=== PATIENT | male | born 1975 | race Caucasian/White ===

== ENCOUNTER 2021-11-11 13:49 | Emergency (ER) | payer MEDICAID, SELFPAY ==
[2021-11-11 13:58] VITALS: BP 167/93; PULSE 97; RESP 16; TEMP 37.1; O2SAT 97; BMI 21.6
[2021-11-11] MEDS: methylPREDNISolone Sod Succ 125 MG/2 ML VIAL IVPUSH (14:23)
[2021-11-11] MEDS: Famotidine/PF 20 MG/2 ML VIAL IVPUSH (14:23)
--- NOTE | 2021-11-11 15:26 | ED.ALLEREA ---
HPI - Allergic Reaction General Chief complaint: Allergic Reaction Stated complaint: allergic reaction, bee sting. Time Seen by Provider: 11/11/21 14:09 Source: patient Mode of arrival: ambulatory History of Present Illness HPI narrative: 46-year-old male with no significant past medical history presenting to the ED complaining of allergic reaction to bee sting to back of right ankle PHYS THERAPIST. Patient with known allergy to bee stings, reports this was a yellow jacket. Has an EpiPen at home however is , did not use, however did take liquid Benadryl PHYS THERAPIST. Reports localized erythema/swelling and itching. Denies cough, throat swelling, throat closing sensation, SOB, wheezing. MD complaint: allergic reaction Related Data Previous Rx's Medication Instructions Recorded epinephrine 0.3 mg/0.3 mL 0.3 mg (0.3 mL) IM Q4H PRN 11/11/21 injection, auto-injector (EpiPen) anaphylaxis #2 ea prednisone 20 mg tablet 40 mg PO DAILY 5 days #10 tabs 11/11/21 Allergies Allergy/AdvReac Type Severity Reaction Status Date / Time bee pollen [BEE STINGS] Allergy Severe ANAPHYLAXIS Unverified 01/29/20 15:17 Review of Systems Review of Systems: Constitutional: No Fever, No Chills, No Fatigue, No Malaise ENT/Mouth: No Ear Pain, No Nasal Congestion, No Sinus Pain, No Hoarseness, No sore throat, No Rhinorrhea, No Swallowing Difficulty Eyes: No Eye Pain, No Swelling, No Redness, No Vision Changes Cardiovascular: No Chest Pain, No SOB, No Dyspnea on Exertion, No Orthopnea, No Edema, No Palpitations Respiratory: No Cough, No Sputum, No Dyspnea Gastrointestinal: No Nausea, No Vomiting, No Diarrhea, No Constipation, No Abdominal pain Genitourinary: No Dysuria, No Urinary Frequency, No Hematuria, No Flank Pain Musculoskeletal: No joint pain, No Myalgias, No Joint Swelling Skin: + Skin Lesions, No rash Neuro: No Weakness, No Numbness, No Headache Yes all other systems are reviewed and are negative [facility] Past Medical History Attestation statement: The following information was validated with the patient. Social History Social History Advance Directives: No Advance Directives Information Provided: No Physical Exam ED Vital Signs: Vital Signs - 24 hr 11/11/21 13:58 Temperature 98.8 F Pulse Rate 97 Respiratory Rate 16 Blood Pressure 167/93 H Pulse Oximetry 97 Oxygen Delivery Method Room Air BMI result Body Mass Index 21.6 Const General: cooperative, healthy appearing and no acute distress Orientation/consciousness: patient oriented x3 Limitations: no limitations HENMT Head: Yes normal to inspection and Yes atraumatic Ears: hearing grossly normal bilaterally General nose exam: Normal external nose present Face and sinus: Yes normal facial exam Mouth: Normal oral and palatal mucosa present, tongue normal, oropharynx normal and no drooling Throat: Yes posterior oropharynx normal, Yes tonsils normal, Yes uvula midline, No peritonsillar mass and No posterior oropharynx abnormal Eyes General: appearance normal, both eyes and all related structures EOM: EOMs intact bilaterally Neck Neck: Yes normal visual inspection, Yes no lymphadenopathy, Yes no meningeal signs and No anterior neck swelling Resp Effort & Inspection: normal respiratory effort, no grunting, not labored and no respiratory distress Auscultation: clear to auscultation bilaterally, no crackles, no rales, no rhonchi and no wheezes Cardio Rate: regular rate Heart sounds: S1 normal heart sound present and S2 normal heart sound present GI Inspection: Yes normal to inspection General: Yes no CVA tenderness Back/Spine/Pelvis Back: no CVA tenderness Skin Other: + bee sting noted to right ankle with surrounding erythema/swelling. No streaking, no other appreciable rash/hives Wounds: no wounds Neuro General: patient oriented x3, tone normal and no meningeal signs Gait exam (Neuro): Normal gait present Extrem General: Yes normal to inspection Course Course Course Narrative: -patient without progression of symptoms, reports symptomatic improvement. Talking in complete sentences. Will discharge with short course of prednisone and refill for epipen MDM - Allergic Reaction MDM Narrative Medical decision making narrative: 46-year-old male with no significant past medical history presenting to the ED complaining of allergic reaction to bee sting to back of right ankle PHYS THERAPIST. On exam vital signs stable, NAD/nontoxic-appearing, bee sting noted to right ankle with localized swelling/erythema. Talking in complete sentences, no respiratory distress, no urticaria. Plan: IV Solu-Medrol and Pepcid as patient already took Benadryl, observe Differential Diagnosis Differential diagnosis: Likely anaphylaxis, allergic reaction, contact dermatitis and urticaria Medical Records Attestation: I reviewed the patient's medical records. Lab Data Attestation: I reviewed the patient's lab results. Discharge Plan Discharge Clinical Impression: Allergic reaction Patient Disposition: Home, Self-Care Instructions: General Allergic Reaction (ED) Additional Instructions: Continue taking Benadryl at home as needed. In addition prednisone as a steroid which will help with swelling/allergic reaction symptoms. Only use EpiPen if you developed anaphylactic symptoms. If you use her EpiPen return to the emergency department immediately. If symptoms persist or worsen, he develops shortness breath, cough, oral swelling return to the ED Prescriptions: New prednisone 20 mg tablet 40 mg PO DAILY 5 Days Qty: 10 0RF epinephrine [EpiPen] 0.3 mg/0.3 mL auto-injector 0.3 mg IM Q4H PRN (Reason: anaphylaxis) Qty: 2 0RF Referrals: Physician,Unknown J [Primary Care Provider] - Interventions: ED Discharge Assessment Last Done: 11/11/21 15:41
== END 2021-11-11 15:42 | disposition home or self-care (01) ==
PROVIDERS: Emergency Provider Emergency Medicine Emergency Medical Services
DX: T63.441A Toxic effect of venom of bees, accidental (unintentional), initial encounter (principal); Y92.9 Unspecified place or not applicable; X58.XXXA Exposure to other specified factors, initial encounter; Z79.899 Other long term (current) drug therapy
CPT/HCPCS: 96374; 96375; 99283; 99284; J2930

== ENCOUNTER 2023-12-01 12:06 | Emergency (ER) | payer MEDICAID, SELFPAY ==
[2023-12-01 12:08] VITALS: BP 197/108; PULSE 96; RESP 18; TEMP 36.8; O2SAT 96; BMI 23.2
[2023-12-01 12:20] VITALS: BP 214/130; PULSE 97; RESP 18; O2SAT 97
--- NOTE | 2023-12-01 12:24 | PC.NURSE ---
Reports he was stung by wasp approx 30 mins ago while working outside, has hx of anaphylaxis to bee stings has epi pen but did not use today. Reports S/S of chest tightness with breathing, itching to trunk and anxiety. Reports he normally has delayed reaction to stings. Alert and oriented, breathing even and unlabored, small area of rash noted to abdomen. BP significantly hypertensive.
--- NOTE | 2023-12-01 12:30 | ED_ITS ---
HPI - Allergic Reaction General Chief complaint: Allergic Reaction Stated complaint: Allergic Reaction to Bee Sting Time Seen by Provider: 12/01/23 12:24 Source: patient Mode of arrival: ambulatory Limitations: no limitations History of Present Illness ED Provider: Kat Gay PA-C HPI narrative: 48 yo male with history of allergy to bee stings presents the ER for evaluation after he was stung on the right outer upper arm 1 hour ago by a hornet. States he carries an EpiPen but has never required it. He took 1 dose of Children's liquid Benadryl prior to coming in. He reports a history of delayed allergic reaction with significant swelling in the area that was stung 1-2 days after the initial sting. He states usually requires prednisone for this. He denies any facial swelling, lip swelling, tongue swelling, difficulty breathing, wheezing, shortness of breath. No chest pain. No abdominal pain, nausea, vomiting. Patient arrives to the ER found to be profoundly hypertensive with a blood pressure of 197/1 awake. He states he has a history of ?stage I hypertension but he is not on any blood pressure medications. He no longer trend his blood pressure and has not taken in several years. He states his blood pressure is high today because he is anxious and nervous about being here. He did not use his EpiPen today MD complaint: allergic reaction Onset (ago): hour(s) Exposure: insect bite Symptoms: rash Severity: mild Treatment prior to arrival: benadryl Previous Allergic Reaction History: prior ED visit(s) Related Data Previous Rx's ?Medication ?Instructions ?Recorded epinephrine 0.3 mg/0.3 mL 0.3 mg (0.3 mL) IM Q4H PRN 11/11/21 injection, auto-injector (EpiPen) anaphylaxis #2 ea prednisone 20 mg tablet 40 mg (2 x 20 mg) PO DAILY 5 days 11/11/21 #10 tabs amlodipine 10 mg tablet 10 mg PO DAILY #30 tabs 12/01/23 prednisone 20 mg tablet 40 mg (2 x 20 mg) PO DAILY #6 tabs 12/01/23 Allergies Allergy/AdvReac Type Severity Reaction Status Date / Time bee pollen [BEE STINGS] Allergy Severe ANAPHYLAXIS Verified 12/01/23 12:10 Review of Systems 2 Review of Systems: Yes all other systems are reviewed and are negative [facility] Social History Social History Smoked in Last 30 Days: Yes Use of substances other than those prescribed or required for medical reasons: No Advance Directives: No Advance Directives Information Provided: No Physical Exam ED Vital Signs: Vital Signs - 24 hr 12/01/23 12:08 12/01/23 12:20 12/01/23 12:53 Temperature 98.3 F Pulse Rate 96 97 Respiratory Rate 18 18 Blood Pressure 197/108 H 214/130 H 221/107 H Pulse Oximetry 96 97 Oxygen Delivery Method Room Air Room Air 12/01/23 15:01 12/01/23 15:37 12/01/23 16:11 Temperature 98.3 F Pulse Rate 92 92 Respiratory Rate 18 18 Blood Pressure 201/127 H 199/111 H 199/111 H Pulse Oximetry 98 98 Oxygen Delivery Method Room Air Room Air BMI result Body Mass Index 23.2 Appearance: Alert. Oriented X3. No acute distress. Head: normocephalic, atraumatic. Eyes: Pupils equal, round and reactive to light. ENT: Pharynx normal. No tonsillar swelling or exudate. Poor dentition. No lip or tongue swelling. Normal voice, handling secretions normally. Neck: Normal inspection. Neck supple. CVS: Normal heart rate and rhythm. Pulses normal. Respiratory: No respiratory distress. Breath sounds normal. Abdomen: Soft and nontender. +BS x4 Skin: Skin warm and dry. Normal skin color. Normal skin turgor. No rashes. Extremities: No lower extremity edema. No joint swelling. Right lateral upper arm with a approximately 6 cm area of erythema warmth, nontender, no fluctuance, mild induration noted. Full range of motion of the right upper extremity. Neurovascularly intact distally. Neuro/psych: Oriented X 3. No motor deficit. No sensory deficit. CN II-XII intact. Normal speech and cognition. Medications Administered Discontinued Medications Generic Name Dose Route Start Last Admin Trade Name Freq PRN Reason Stop Dose Admin Amlodipine Besylate 10 mg 12/01/23 12:34 12/01/23 12:53 Amlodipine Besylate 10 Mg Tablet PO 12/01/23 12:35 10 mg ONCE ONE Administration Protocol Diphenhydramine HCl 25 mg 12/01/23 12:34 12/01/23 12:52 Diphenhydramine Hcl 25 Mg Capsule PO 12/01/23 12:35 25 mg ONCE ONE Administration Lisinopril 20 mg 12/01/23 15:19 12/01/23 15:37 Lisinopril 20 Mg Tablet PO 12/01/23 15:20 20 mg ONCE ONE Administration Protocol Prednisone 50 mg 12/01/23 12:34 12/01/23 12:52 Prednisone 10 Mg Tablet PO 12/01/23 12:35 50 mg ONCE ONE Administration Medical Decision Making Medical Decision Making [facility] Narrative: 48-year-old male with reported history of stage I hypertension, not currently on medications with no primary care who presents to the ER for evaluation of a bee sting an hour ago. No evidence of anaphylaxis at this time. Airway is patent, speaking complete sentences. No respiratory distress. He has localized swelling, erythema of the right biceps. On arrival to the ER patient is significantly hypertensive. Blood pressure taken multiple times and results were similar with systolics in the 200s. He does not have any symptoms, no chest pain, vision changes, headache. Does not take his blood pressure at home. Does not have a primary care doctor. He states it is due to anxiety. After multiple repeat blood pressures were the same, p.o. amlodipine was ordered along with p.o. Benadryl and prednisone for his allergic reaction. He was monitored closely. No evidence of evolution of allergic reaction symptoms worsening. Blood pressure remained elevated. P.o. lisinopril was then ordered, as he refused IV medications. He thinks blood pressure medications or dangerous. He does not want to be on 1. Patient was counseled on the significant health risks of severely untreated hypertension including spontaneous intracranial hemorrhage, damage to multiple organ systems including heart, kidneys. He expressed understanding. I recommended admission to the hospital for initiation and titration of antihypertensive agents however he adamantly declined. States he would like to go home, purchase a home BP cuff. He signed out against medical advice in all the risks were discussed including . Differential Diagnosis Differential Diagnoses: The differential diagnosis associated with the presentation includes Localized allergic reaction, anaphylaxis, malignant hypertension, hypertensive crisis, hypertensive urgency, hypertensive emergency Admission/Observation Consideration of admission/observation: Escalation of care including admission/observation considered Lab Data [facility] Lab Attestation statement: I reviewed the patient's lab results. 12/01/23 13:35 12/01/23 13:35 Labs: Lab Results 12/01/23 Range/Units 13:35 WBC 7.9 (4.8-10.8) X10*3/uL RBC 4.71 (4.60-5.80) X10*6/uL Hgb 15.0 (14.0-18.0) g/dl Hct 42.0 (42.0-52.0) % MCV 89.2 (80.0-98.0) fL MCH 31.8 (27.0-33.0) pg MCHC 35.7 (31.0-36.0) g/dl RDW 11.7 (11.0-16.0) % Plt Count 219 (160-400) X10*3/uL MPV 9.4 (9.4-12.4) fL Immature Gran % (Auto) 0.3 (0.0-0.4) % Neut % (Auto) 62.5 (45-73) % Lymph % (Auto) 26.9 (20-40) % Cotton % (Auto) 8.3 (2-11) % Eos % (Auto) 1.4 (0-4) % Baso % (Auto) 0.6 (0-2) % Lymph # (Auto) 2.1 (1.2-4.9) X10*3/uL Cotton # (Auto) 0.7 (0.1-1.2) X10*3/uL Eos # (Auto) 0.1 (0.0-0.4) X10*3/uL Baso # (Auto) 0.1 (0.0-0.2) X10*3/uL Abs Immat Gran (auto) 0.02 (0.00-0.03) X10*3/uL Absolute Neuts (auto) 4.9 (2.0-8.3) x10*3/uL Absolute Nucleated RBC 0.000 (0.0-0.012) X10*3/uL Nucleated RBC % (auto) 0.0 (0.0-0.2) /100WBC Sodium 141 (135-145) mmol/L Potassium 4.2 (3.3-5.1) mmol/L Chloride 104 (96-108) mmol/L Carbon Dioxide 26 (22-29) mmol/L Anion Gap 15 (12-20) BUN 15 (9-16) mg/dL Creatinine 1.16 (0.5-1.4) mg/dL Estim Creat Clear Calc 84.7 Estimated GFR > 60 Random Glucose 101 (60-115) mg/dL Calcium 9.9 (8.4-10.2) mg/dL Magnesium 2.4 (1.6-2.6) mg/dL Total Bilirubin 0.5 (0.0-1.0) mg/dL Direct Bilirubin 0.1 (0.0-0.5) mg/dL AST 14 (5-37) U/L ALT 10 (0-40) U/L Alkaline Phosphatase 56 (39-117) U/L Total Protein 7.6 (6.5-8.0) g/dL Albumin 4.6 (3.5-5.0) g/dL Prescription Management I considered prescription management with: Other (Prednisone and Benadryl, antihypertensive) Chronic Conditions Patient?s care impacted by: Hypertension Critical Care Time Critical Care Time Critical Care Time: Yes Total Critical Care Time: 32 Attestation: I have personally provided critical care time exclusive of time spent on separately billable procedures. Time includes review of lab data, bedside re- evaluation of vital signs, respiratory status, airway, and monitoring for potential decompensation. Intervention performed as documented. Discharge Plan Discharge Clinical Impression: Allergic reaction, Hypertension Patient Disposition: Left Against Medical Advice Instructions: Hypertensive Crisis (ED), General Allergic Reaction (ED) Additional Instructions: Her blood pressure today was severely elevated. It was recommended that you stay in the hospital for close monitoring and titration of blood pressure medications. It is important that you understand that blood pressure this high can lead to spontaneous bleeding in the brain and damage to multiple organs, possible . Highly recommend obtaining a blood pressure cuff and monitoring her blood pressure closely at home. If your blood pressure is greater than 180/110 it is highly recommended that you call 911 or come back to the emergency room for further evaluation treatment. Take the prednisone as needed for swelling in the arm. Recommend continuing oral Benadryl every 6 hours until swelling and redness are completely gone. You can also use [id number] topical Benadryl. If you develop new or worsening symptoms call 911 or come back to the ER for further evaluation. Prescriptions: New prednisone 20 mg tablet 40 mg PO DAILY Qty: 6 0RF amlodipine 10 mg tablet 10 mg PO DAILY Qty: 30 0RF No Action prednisone 20 mg tablet 40 mg PO DAILY 5 Days Qty: 10 0RF epinephrine [EpiPen] 0.3 mg/0.3 mL auto-injector 0.3 mg IM Q4H PRN (Reason: anaphylaxis) Qty: 2 0RF Referrals: [facility] [Provider Group] [facility] [place] [facility] [place] [facility] Interventions: ED Discharge Assessment Last Done: 12/01/23 16:11 Discharge Date/Time: 12/01/23 16:14 Print Language: Portuguese
[2023-12-01] MEDS: diphenhydrAMINE HCL 25 MG CAPSULE PO (12:52)
[2023-12-01] MEDS: predniSONE 10 MG TABLET 50 MG PO (12:52)
[2023-12-01 12:53] VITALS: BP 221/107
[2023-12-01] MEDS: amLODIPine Besylate 10 MG TABLET PO (12:53)
[2023-12-01 13:39] LABS: MANUAL DIFF FLAG NO
[2023-12-01 13:40] LABS: Basophils Absolute Auto 0.1 X10*3/uL (0.0-0.2); Basophils Percent Auto 0.6 % (0-2); Eosinophils Absolute Auto 0.1 X10*3/uL (0.0-0.4); Eosinophils Percent Auto 1.4 % (0-4); Imm Gran Abs Auto 0.02 X10*3/uL (0.00-0.03); Imm Gran Pct Auto 0.3 % (0.0-0.4); Lymphocytes Absolute Auto 2.1 X10*3/uL (1.2-4.9); Lymphocytes Percent Auto 26.9 % (20-40); Mean Corpuscular HGB Conc 35.7 g/dl (31.0-36.0); Mean Corpuscular Hemoglobin 31.8 pg (27.0-33.0); Mean Corpuscular Volume 89.2 fL (80.0-98.0); Mean Platelet Volume 9.4 fL (9.4-12.4); Monocytes Absolute Auto 0.7 X10*3/uL (0.1-1.2); Monocytes Percent Auto 8.3 % (2-11); Neutrophils Absolute Auto 4.9 x10*3/uL (2.0-8.3); Neutrophils Percent Auto 62.5 % (45-73); Platelet Count 219 X10*3/uL (160-400); Red Blood Count 4.71 X10*6/uL (4.60-5.80); Red Cell Distribution Width 11.7 % (11.0-16.0); White Blood Count 7.9 X10*3/uL (4.8-10.8)
[2023-12-01 14:01] LABS: Alanine Aminotransferase 10 U/L (0-40); Albumin Level 4.6 g/dL (3.5-5.0); Alkaline Phosphatase 56 U/L (39-117); Anion Gap 15 (12-20); Aspartate Amino Transferase 14 U/L (5-37); Bilirubin Direct 0.1 mg/dL (0.0-0.5); Bilirubin Total 0.5 mg/dL (0.0-1.0); Blood Urea Nitrogen 15 mg/dL (9-16); Calcium 9.9 mg/dL (8.4-10.2); Carbon Dioxide 26 mmol/L (22-29); Chloride 104 mmol/L (96-108); Creatinine Clr Calc Pharmacy 84.7; Estimated Glomerular Filt Rate > 60; Glucose Random 101 mg/dL (60-115); Magnesium 2.4 mg/dL (1.6-2.6); Potassium 4.2 mmol/L (3.3-5.1); Sodium 141 mmol/L (135-145); Total Protein 7.6 g/dL (6.5-8.0)
[2023-12-01 15:01] VITALS: BP 201/127; PULSE 92; RESP 18; O2SAT 98
[2023-12-01 15:37] VITALS: BP 199/111
[2023-12-01] MEDS: lisinopriL 20 MG TABLET PO (15:37)
[2023-12-01 16:11] VITALS: BP 199/111; PULSE 92; RESP 18; TEMP 36.8; O2SAT 98
== END 2023-12-01 16:14 | disposition left against medical advice (07) ==
PROVIDERS: Physician Assistant; Emergency Provider Emergency Medicine
DX: T63.441A Toxic effect of venom of bees, accidental (unintentional), initial encounter (principal); Y92.009 Unspecified place in unspecified non-institutional (private) residence as the place of occurrence of the external cause; I10 Essential (primary) hypertension
CPT/HCPCS: 36415; 80048; 80076; 83735; 85025; 99283; 99284